=== PATIENT | female | born 1950 | race Caucasian/White ===

== ENCOUNTER 2016-12-26 23:23 | Inpatient (IN) | payer OTHER ==
[~2016-12-26] VITALS: Ht 167.6 cm; Wt 106.8 kg
--- NOTE | ~2016-12-26 | HC ---
[facility] [place] [address] CONSULTATION Name: ISA CHAN Room #: 309-P [facility] [place] M.R.#: [id number] Admission: 12/27/16 Attend Phys: Gerber Griggs MD Discharge: 12/27/16 Date of : 50 Report #: [id number] THIS REPORT FOR: //name// CC: GAIL physician/PCP Gerber Griggs DATE OF SERVICE: 12/27/2016 HISTORY OF PRESENT ILLNESS: I have been asked to evaluate this 66-year-old lady who presented to the emergency room with a chief complaint of lower abdominal pain. The patient underwent a previous colon resection in October at [facility] for presumptive diagnosis of diverticular disease of the colon. She has been taking significant pain medications since that time and reported that her pain medicine had been completely utilized. She presented to the emergency department complaining of the lower abdominal pain of approximately 2 days' duration. She denied fever or chills and was admitted for care. PAST MEDICAL HISTORY: Consistent with tonsillectomy, adenoidectomy, tubal ligation, hysterectomy, hemorrhoidectomy, cholecystectomy, appendectomy, vaginal tightening, bladder suspension, recent colon resection in October 2016. Medical illnesses: Hypercholesterolemia, Mague disease, Ruby esophagitis, osteoarthritis, diverticular disease of colon, fibromyalgia, irritable bowel syndrome, aortic insufficiency; chronic pain syndrome, evaluated and managed in pain clinic; interstitial cystitis, laminar disc rupture and spinal surgery indicated possibly with Dr. Urena. CURRENT MEDICATIONS: Multiple; Percocet 10/325 one tab q.i.d., which she was still taking one month after surgery, Valium 2.5 mg, atorvastatin 10 mg daily, diphenhydramine, enteric aspirin 81 mg, cholecalciferol, levothyroxine, Symbicort. ALLERGIES: MULTIPLE; AMOXICILLIN, , AZITHROMYCIN, BEE STINGS, BETA-BLOCKERS, CLINDAMYCIN, CODEINE, DURICEF, ERYTHROMYCIN BASE, CONTRAST MATERIAL, METRONIDAZOLE, MORPHINE AND SULFA. SOCIAL HISTORY: Multiple years of cigarette smoking. Alcohol, she denies use. REVIEW OF SYSTEMS: Not able to be obtained. No family at the bedside. The patient is not responding to verbal questioning. PHYSICAL EXAMINATION: GENERAL: Demonstrated the patient to be not communicating due to pain medications administered by the hospitalist service. She was alert, cooperative. VITAL SIGNS: Within normal limits. ABDOMEN: Not distended. She had some mild tenderness in the lower abdomen. [address] [address] CONSULTATION Name: ISA CHAN [facility] Room #: 309-P [facility] [place] [place] [facility]#: [id number] Admission: 12/27/16 Attend Phys: Gerber Griggs MD Discharge: 12/27/16 Date of : 50 Report #: [id number] guarding or rebound. LABORATORY DATA: Review of the patient's laboratory demonstrated laboratory evaluation within normal limits including a white blood cell count of 12,700. CT scan was suggestive of a small linear mass-like structure in the lower abdomen on the left, which could possibly be fluid collection, ovarian cystic structure or an anastomotic leak, although this is remote as the colon surgery was remote. DIAGNOSTIC IMPRESSION: Possible pelvic abscess, but unlikely after review with radiology of the CT scan. I would recommend a CT scan with administration of water-soluble contrast per rectum to further evaluate this area and radiology is in agreement with this plan. I have proceeded with ordering the test. Thank you for allowing us to participate in her care. By: [id number] Loco Castillo MD, FACS /nt
[~2016-12-26 23:23] MED LIST: ACCUNEB SO1.25 MG/1 INH; ACETAMINOPHEN325 M1 PO; ACYCLOVIR 400400 MG PO; AFRIN MENTHOL S15 ML NS; ASA81BEC PO; ASPIRIN EC81 M1 PO; ATORVASTATIN CA10 MG PO; AZITHROMYCIN 2250 MG PO; BENTYL10 MG PO; BENTYL20 MG PO; CIPRO500 MG PO; CIPROFLOXACIN500 M1 PO; CITRATE OF MAG296 ML PO; COLACE 100 MG100 MG PO; COLACE100 MG PO; CONSTULOSE10 GM/15 M PO; DIPHENHYDRAMINE25 M3 PO; DOXYCYCLINE 10100 MG PO; ELMIRON 100 MG100 M1 PO; ERYTHROMYCIN250 M1 PO; ESTRADIOL 1 MG T1 M1 PO; FENTANYL PA25 MCG/HR TRANSDERM; FLAGYL500 MG PO; FLEXERIL PO; FLONASE 0.05%50 MCG NASAL; IPRAT-ALBUT 0.5-3 ML IH; KETOCONAZOLE60 GM TP; KLOR-CON 1010 MEQ PO; LACTULOSE10 GM/152; LASIX 20 MG TAB20 MG PO; LEVAQUIN 500 M500 M2 PO; LEVOTHYROXIN0.112 M1 PO; MACROBID 100 M100 M1 PO; MECLIZINE HCL25 M1 PO; MEDROL DOSPAK21 TAB PO; MIRALAX255 GM PO; MUCINEX TA600 MG/TA2 PO; NEXIUM20 M1 PO; NEXIUM40 MG PO; ONDANSETRON HCL4 M2 PO; OXYCODONE HCL 55 MG PO; OXYCODONE HCL5 M1 PO; PEPCID40 MG PO; PERCOCET 10-321 EACH PO; PERCOCET 5-3251 EACH PO; PERCOCET PO; PHENERGAN 25 MG25 M1 PO; PREDNISONE 20 M20 MG PO; PROBIOTIC1 EAC1 PO; PROTONIX40 M2; PROVENTIL HFA6.7 G1 INH; SENOKOT-S1 TA1 PO; SYMBICORT80 MCG/4.5 INH; SYNTHROID125 MCG PO; SYNTHROID88 MCG PO; TESSALON PERLE100 MG PO; TORSEMIDE5 MG; TYLENOL325 MG PO; ULTRAM 50MG TAB50 MG PO; VALIUM10 MG PO; VALIUM5 MG PO; VENTOLIN HFA 1818 GM INH; VITAMIN B COMP1 EAC7 PO; VITAMIN D 5050000 I1; VITAMIN D1000 UNI1 PO; ZANTAC 150MG T150 M1 PO; ZOFRAN ODT4 MG PO; ZPAK PO; [UNRECOGNIZED DRUG - OTHER]; [UNRECOGNIZED DRUG - REMARK]; [UNRECOGNIZED DRUG - REMARK]; [UNRECOGNIZED DRUG - REMARK]
[2016-12-26 23:24] VITALS: BP 121/83
[2016-12-27 00:10] LABS: ABSOLUTE NEUTROPHILS 7.7 thou/uL (1.4-8.2); BASOPHILS 0.8 % (0.0-2.0); EOSINOPHILS 1.7 % (0.0-3.0); HEMATOCRIT 34.9 % (37.0-47.0); HEMOGLOBIN 11.4 gm/dL (12.0-15.0); LYMPHOCYTES 30.1 % (24.0-44.0); MCH 30.8 pg (26.0-34.0); MCHC 32.7 g/dL (28.0-37.0); MCV 94.2 fL (80.0-100.0); MONOCYTES 7.1 % (1.0-8.0); PLATELET COUNT 310 thou/uL (150-400); POLYS 60.3 % (36.0-66.0); RBC 3.71 mil/uL (4.20-5.00); RDW 18.9 % (10.5-14.5); WBC 12.7 thou/uL (4.0-11.0)
[2016-12-27 00:14] LABS: CALCIUM 8.7 mg/dL (8.5-10.1); CREATININE 0.7 mg/dL (0.6-1.0); POTASSIUM 3.2 mmol/L (3.5-5.1)
[2016-12-27 00:16] LABS: MANUAL DIFF NO
[2016-12-27 00:20] LABS: ALBUMIN 2.6 g/dL (3.4-5.0); TOTAL BILIRUBIN 0.4 mg/dL (<0.1-1.0); TOTAL PROTEIN 7.3 g/dL (6.4-8.2)
[2016-12-27 00:36] LABS: URINE BILIRUBIN NEGATIVE (Negative); URINE BLOOD TRACE (Negative); URINE COLOR YELLOW; URINE GLUCOSE-RANDOM* NEGATIVE (Negative); URINE KETONES NEGATIVE (Negative); URINE LEUKOCYTES-REFLEX 2+ (Negative); URINE PROTEIN (DIPSTICK) TRACE (Negative); URINE UROBILINOGEN 0.2 E.U./dl (0.2-1.0)
[2016-12-27 00:43] LABS: CASTS None Seen /LPF (None Seen); SQUAMOUS 4-10 Moderate /LPF (0-3)
[2016-12-27 00:44] LABS: CRYSTALS None Seen /LPF (None Seen); URINE RBC 0-2 Rare /HPF (0-2); URINE WBC-REFLEX >25 Many /HPF (0-5)
[2016-12-27] MEDS ORDERED: PERCOCET 10-321 EACH PO (02:40)
[2016-12-27 05:00] VITALS: BP 145/95
[2016-12-27] MEDS ORDERED: VALIUM5 MG PO (07:58)
[2016-12-27] MEDS ORDERED: COLACE100 MG PO (07:59)
[2016-12-27 08:00] VITALS: BP 152/73
[2016-12-27] MEDS ORDERED: POTASSIUM20 MEQ/15 PO (08:04)
== END 2016-12-27 16:10 | disposition home or self-care (01) | DRG 871 ==
LOC: ER 23:23 → EROBS 12-27 01:16 → 3N 12-27 01:16
PROVIDERS: Emergency Medicine
DX: A41.9 Sepsis, unspecified organism (principal); G92 Toxic encephalopathy; F10.239 Alcohol dependence with withdrawal, unspecified; N39.0 Urinary tract infection, site not specified; N73.9 Female pelvic inflammatory disease, unspecified; J44.9 Chronic obstructive pulmonary disease, unspecified; R91.1 Solitary pulmonary nodule; E87.6 Hypokalemia; E78.00 Pure hypercholesterolemia, unspecified; M19.90 Unspecified osteoarthritis, unspecified site; K58.9 Irritable bowel syndrome, unspecified; G89.4 Chronic pain syndrome; F41.9 Anxiety disorder, unspecified; F32.9 Major depressive disorder, single episode, unspecified; Z79.899 Other long term (current) drug therapy; Z88.6 Allergy status to analgesic agent; Z88.1 Allergy status to other antibiotic agents; Z91.030 Bee allergy status; Z90.49 Acquired absence of other specified parts of digestive tract; Z87.891 Personal history of nicotine dependence; Z90.710 Acquired absence of both cervix and uterus; Z88.5 Allergy status to narcotic agent; Z88.8 Allergy status to other drugs, medicaments and biological substances; Z88.2 Allergy status to sulfonamides; Z91.041 Radiographic dye allergy status
CPT/HCPCS: 10096

== ENCOUNTER → 2019-04-29 | Outpatient (CLI) | payer OTHER ==
[~2019-04-29] MED LIST changes: +ANTIVERT25 MG PO; +BENTYL 20 MG TA20 M1 PO; +MELATONIN5 M1 PO; +POTASSIUM20 MEQ/15 PO; +TRAMADOL 50 MG50 MG PO
== END ==
LOC: RAD 09:50
DX: Z12.31 Encounter for screening mammogram for malignant neoplasm of breast (principal)

== ENCOUNTER → 2020-05-13 | Outpatient (CLI) | payer OTHER ==
[~2020-05-13] MED LIST changes: +ACYCLOVIR 800800 MG PO; +AZO STANDARD95 MG PO; +COMPAZINE10 M2 PO; +DEMADEX20 MG PO; +ESTRACE0.5 MG PO; +HYDROCODON-ACE1 EAC7 PO; +HYDROXYZINE HCL25 M2 PO; +KLOR-CON 10 ER10 MEQ PO; +LIPITOR 10 MG10 M1 PO; +MELOXICAM15 MG PO; +MOTION SICKNESS25 M4 PO; +SYNTHROID100 MC1 PO
== END ==
LOC: LAB 08:09
PROVIDERS: ATTEND Orthopaedic Surgery
DX: Z01.812 Encounter for preprocedural laboratory examination (principal); Z20.828 Contact with and (suspected) exposure to other viral communicable diseases

== ENCOUNTER 2020-05-18 06:04 | Inpatient (IN) | payer OTHER ==
[2020-05-13 13:22] LABS: HEMATOCRIT 41.1 % (37.0-47.0); HEMOGLOBIN 13.6 gm/dL (12.0-15.0); MCH 31.5 pg (26.0-34.0); MCV 95.5 fL (80.0-100.0); RBC 4.3 mil/uL (4.20-5.00); RDW 13.9 % (10.5-14.5); WBC 7.6 thou/uL (4.0-11.0)
[2020-05-13 13:43] LABS: ALBUMIN 3.8 g/dL (3.4-5.0); CALCIUM 9.2 mg/dL (8.5-10.1); CREATININE 0.9 mg/dL (0.6-1.0); POTASSIUM 4.1 mmol/L (3.5-5.1)
[2020-05-13 13:49] LABS: URINE BILIRUBIN NEGATIVE (Negative); URINE BLOOD NEGATIVE (Negative); URINE CLARITY CLEAR; URINE COLOR YELLOW; URINE GLUCOSE-RANDOM* NEGATIVE (Negative); URINE KETONES NEGATIVE (Negative); URINE LEUKOCYTES-REFLEX NEGATIVE (Negative); URINE NITRITE-REFLEX NEGATIVE (Negative); URINE PROTEIN (DIPSTICK) NEGATIVE (Negative); URINE UROBILINOGEN 0.2 E.U./dl (0.2-1.0)
[2020-05-13 13:55] LABS: PROTIME 10.3 Seconds (9.3-11.4)
[~2020-05-18] VITALS: Ht 167.6 cm; Wt 85.7 kg
[2020-05-18] VITALS (7 sets, daily range): BP systolic 118–157; BP diastolic 54–88
[2020-05-18 07:30] LABS: PROTIME 10.5 Seconds (9.3-11.4)
--- NOTE | 2020-05-18 12:34 | NUR ---
Pt transferred from PACU approx 1100. Dressing on lt knee c/d/i. Pain controlled with prn pain meds. IVF infusing. Pt states she takes muscle relaxant at home. Provider paged. Awaiting call back. Able to void without issues. Vital signs stable. Fall precautions in place. Call light within reach. Will continue to monitor.
--- NOTE | 2020-05-18 22:46 | NUR ---
Pt requested oxycodone@[facility], refused norco that had been scanned.Pt only got percocet-and not both pain meds.
[2020-05-19 05:37] LABS: HEMATOCRIT 33.6 % (37.0-47.0); MCH 31.4 pg (26.0-34.0); MCHC 32.7 g/dL (28.0-37.0); MCV 96.1 fL (80.0-100.0); RBC 3.5 mil/uL (4.20-5.00); RDW 13.6 % (10.5-14.5); WBC 21.3 thou/uL (4.0-11.0)
[2020-05-19 07:26] VITALS: BP 138/60
--- NOTE | 2020-05-19 09:35 | NUR ---
ASSESSMENT: CM REVIEWED CHART AND SPOKE WITH PT. PT IS ALERT AND ORIENTED X4. PT IS S/P L TKA. PT REPORTS LIVING IN AN APT WITH HER DAUGHTER. PT REPORTS THAT SHE HAS ABOUT 2 STEPS WITH A HANDRAIL TO ENTER AND NO STEPS ONCE INSIDE. PT REPORTS SHE HAS ALOT OF DME AT HOME FROM PREVIOUS SURGERIES. PT REPORTS HAVING A GRAB BAR, SHOWER CHAIR, STOOL RISER, WHEELCHAIR, AND WALKER. PT REPORTS SHE HAS HAD [facility] IN THE PAST AND [facility]. PT REPORTS SHE IS REQUESTING [facility] AT DISCHARGE SHE STATES SHE NEEDS TO GET HER CAR WORKED ON BEFORE DOING OUTPT THERAPY. CM FAXED REFERRAL TO [facility] AND AWAITING TO HEAR BACK. CM WILL CONTINUE TO FOLLOW TO ASSIST NEEDED.
--- NOTE | 2020-05-19 11:54 | NUR ---
Assumed care of pt at 0700. Pt a&ox4. Pain controlled with prn pain meds. Dressing c/d/i. Polar care in place. IVF infusing. Pt will likely stay in the hospital another night. Might need home health at discharge. Call light within reach. Fall precautions in place. Will continue to monitor.
[2020-05-19 12:57] VITALS: BP 138/60
[2020-05-19 16:30] VITALS: BP 106/54
[2020-05-19 19:14] VITALS: BP 114/46
--- NOTE | 2020-05-20 03:22 | NUR ---
ASSESSED AT START OF SHIFT, PT A&OX4. C/O PAIN AND ITCHING MANAGED BY PO MEDICATION SEE EMAR. PT ON RA. UP WITH ASSIST X1 TO THE BSC. POLAR PACK, SCD'S AND TEDHOSE IN PLACE. FALL PREACUTIONS MAINTAINED. WILL CONT WITH POC TILL EOS.
[2020-05-20 04:49] VITALS: BP 153/67
[2020-05-20 05:47] LABS: HEMATOCRIT 29.1 % (37.0-47.0); HEMOGLOBIN 9.4 gm/dL (12.0-15.0); MCH 31.5 pg (26.0-34.0); MCHC 32.5 g/dL (28.0-37.0); MCV 97.2 fL (80.0-100.0); RBC 2.99 mil/uL (4.20-5.00); RDW 13.8 % (10.5-14.5)
[2020-05-20 07:25] VITALS: BP 142/62
--- NOTE | 2020-05-20 09:53 | NUR ---
ASSUMED CARE AT 0700. PT IS A&O X4. PT HAS SOFT ABD. VSS. IV SHOWS REDNESS ON LEFT FOREARM AND WAS D/C DUE TO PAIN AND REDNESS SURROUNDING IV. PT COMPLAINS OF NUMBNESS ON BOTH FEET. STANDBY ASSIST X1. PT COMPLAINS OF PAIN, NONPRODUCTIVE COUGH. DENIES NAUSEA, VOMITTING, DIARRHEA, AND SOA. VSS. FALL PRECAUTION. CALL LIGHT WITHIN REACH. PT COMPLAINS OF ITCHING AND WILL BE GIVEN HYDOOXYZINE WHEN IT IS TIME TO GIVE IT. SKIN IS INTACT. FELIPE, JF/SCD HOSE ARE IN PLACE. POLAR CARE IS IN PLACE. WILL CONTINUE TO MONITOR.
--- NOTE | 2020-05-20 13:19 | NUR ---
assumed care at 0700. pt is a&o x4. pt has soft abd. pt complains of pain and denies soa, nausea, and vomitting. pt iv was d/c because pt complains of pain and it shows redness around site. pt complains of numbness bilateral on foot. pt has a non productive cough. marisa, scd/mady hose are in place. polar care is place. will continue to monitor for pain. fall precaution. call light within reach.
--- NOTE | 2020-05-20 15:08 | NUR ---
PT DISCHARGING TODAY TO HOME WITH [facility] FAXED DC ORDERS/SUMMARY SPOKE WITH SOWMYA IN INTAKE SHE RECEIVED ORDERS AND WILL ARRANGE VISITS WITH PT.
[2020-05-20 15:56] VITALS: BP 114/56
[2020-05-20 17:19] VITALS: BP 138/60
--- NOTE | 2020-05-25 07:59 | O ---
[facility] [place] [address] OPERATIVE REPORT Name: ISA CHAN Room #: 440-P [facility] IN M.R.#: [id number] Admission: 05/20/20 Attend Phys: Henry Díaz MD Discharge: 05/20/20 Date of : 50 Report #: [id number] THIS REPORT FOR: cc: Navneet Briseno Cory T. DO Abraham,Henry Mendenhall MD ~ CC: Navneet Díaz DATE OF SERVICE: 05/18/2020 PREOPERATIVE DIAGNOSIS: Left knee osteoarthritis. POSTOPERATIVE DIAGNOSIS: Left knee osteoarthritis. PROCEDURE: Left total knee arthroplasty using Navio robotic assistance. SURGEON: Henry Díaz MD. TRAVEL INFORMATION CENTER SUPERVISOR: Nika tGz PA-C. INDICATIONS FOR TRAVEL INFORMATION CENTER SUPERVISOR: Throughout the case, extensive retraction and manipulation of the knee was required. This was afforded to me by my cement tester assistant. ANESTHESIA: LMA with an adductor canal block. IMPLANTS: Jasso and Nephew size 6 Journey II BCS [employer] Chrome femur, a size 4 tibia, size 13 constrained polyethylene and size 32 patella. TOURNIQUET TIME: 51 minutes. ESTIMATED BLOOD LOSS: 25 mL. COMPLICATIONS: None. SPECIMENS: None. CONDITION UPON LEAVING THE OPERATING ROOM: Stable. INDICATIONS FOR PROCEDURE: The patient is a 69-year-old female with severe left knee valgus osteoarthritis. She had failed conservative measures for this and after discussion with her, she elected for left total knee arthroplasty. DESCRIPTION OF PROCEDURE: Risks, benefits, alternatives, complications were discussed in detail with the patient including but not limited to risk of anesthesia, risk of damage to nerves, arteries, blood vessels, risk for [facility] [address] [place] [address] OPERATIVE REPORT Name: ISA CHAN [facility] Room #: 440-P [facility] IN M.R.#: [id number] Admission: 05/20/20 Attend Phys: Henry Díaz MD Discharge: 05/20/20 Date of : 50 Report #: [id number] infection, bleeding, risk for continued knee pain, need for reoperation. Informed consent was obtained from the patient. Left knee was appropriately marked in the preoperative holding area. IV Ancef was given for preoperative antibiotics. She was brought to the operating room and placed in supine position on operating room table. LMA anesthesia was induced without complication. Tourniquet was placed on the left thigh. Left lower extremity was prepped and draped in normal sterile fashion. Timeout was performed properly identifying the patient and procedure as well as the instrumentation and implants. All in the operating room were in agreement. Left lower extremity was exsanguinated, tourniquet was inflated. Tourniquet time was 51 minutes. Standard midline approach to the knee was made with 10-blade through the skin. Dissection was taken down sharply to the fascia and deep flaps were developed medially and laterally. Fresh 10-blade was used to make a medial parapatellar arthrotomy and the knee was inspected. There was severe lateral compartment osteoarthritis with valgus deformity. ACL and PCL were removed sharply. Reference pins were placed in the femur and the tibia and the knee was then digitally mapped using the [employer] robotic system. Intraoperative plan was made and we sized the size 6 femur with a size 4 tibia and a 10 spacer. After acceptance of the intraoperative plan, the distal femoral cut was made with a Navio bur. Distal femoral cutting block was pinned in place and chamfer cuts were made. Attention was then turned to the tibia. Remainder of the menisci removed with Bovie cautery. Tibial resection guide was pinned in place using the Navio for placement and tibial resection was made. After this, flexion and extension gaps were checked and found to have good balance laterally in flexion and extension, but significant laxity medial, this was expected given her underlying valgus deformity, it was felt we could make up for this with a constrained polyethylene. After this, tibia was sized, found to be a size 4. Size 4 tibial trial was placed, pinned and punched. A size 6 femoral trial was placed and the box cut was made. This was then trialled with a size 10 and then sequentially up to a size 13 polyethylene and a size 13 polyethylene demonstrated good balance laterally throughout range of motion with a 4-5 millimeter of laxity medially and again we felt we could use a constrained implant to make up for this. After this, 9 mm bone was resected from the posterior surface of the patella and a size 32 patellar trial button was placed. Knee was taken through range of motion, found to be stable, found to have good patellar tracking. Trial components were removed. Bony ends were thoroughly irrigated with normal saline. A final size 4 tibia, size 6 Journey II B[employer] Chrome femur and a size 32 patella were cemented in place using standard cementation techniques. While the cement cured, a periarticular injection consisting of morphine, ropivacaine, epinephrine and Toradol was placed around the knee joint capsule. After the cement cured, the tourniquet was deflated. Hemostasis was obtained with Bovie cautery. Final size 13 constrained polyethylene was placed. A gram of vancomycin was placed deep in the joint. Fascia was closed with 0 Vicryl, skin was closed with 2-0 Vicryl, skin staple [address] [address] OPERATIVE REPORT Name: ISA CHAN YAHAIRA Room #: 440-P [facility] IN M.R.#: [id number] Admission: 05/20/20 Attend Phys: Henry Díaz MD Discharge: 05/20/20 Date of : 50 Report #: [id number] and a FELIPE dressing was applied. The patient tolerated this procedure well and went to recovery room under care of anesthesia postoperatively. <ELECTRONICALLY SIGNED> By: Henry Díaz MD 05/25/20 0759 [id number] Henry Díaz MD /nt
== END 2020-05-20 17:52 | disposition home health service (06) | DRG 470 ==
LOC: TBA 06:04 → OR 06:04 → 4S 11:12 → OR 12:13 → EDSTATUS 13:12 → OR 05-20 12:15 → 4S 05-20 12:16
PROVIDERS: ADMIT Orthopaedic Surgery; ATTEND Orthopaedic Surgery
DX: M17.12 Unilateral primary osteoarthritis, left knee (principal); Z88.2 Allergy status to sulfonamides; Z88.8 Allergy status to other drugs, medicaments and biological substances; Z88.6 Allergy status to analgesic agent; Z88.1 Allergy status to other antibiotic agents; Z91.041 Radiographic dye allergy status; Z79.899 Other long term (current) drug therapy
CPT/HCPCS: 10102; 50010; 50101; 50415; 50954; 51130; 51225; 51320; 51412; 53000; 53078; 53365; 56527; 56528; 57095; 57103; 57110; 57127; 57180; 62110; 62900; 64043; 65060; 70005